=== PATIENT | male | born 1975 | race Caucasian/White ===

== ENCOUNTER 2022-04-23 01:02 | Emergency (ER) | payer MEDICAID ==
[~2022-04-23] VITALS: Ht 167.6 cm; Wt 110.5 kg
[2022-04-23] MEDS ORDERED: VISCOUS LIDOCAINE 2% 15 ML UDC PO STA (03:33)
[2022-04-23] MEDS ORDERED: MAGNESIUM/ALUMINUM HYDROXIDE/SIMETHICONE 30ML UDC PO STA (03:33)
[2022-04-23] MEDS ORDERED: MORPHINE SULFATE 4 MG/ML CPJ (NOT FOR IM USE) IV STA (04:18)
[2022-04-23] MEDS ORDERED: ONDANSETRON HCL 4MG/2ML INJ IV STA (04:18)
[2022-04-23 04:24] LABS: HEMATOCRIT. 47.5 % (42.0-52.0); HEMOGLOBIN. 16.1 g/dL (14.0-18.0); MEAN CORPUSCULAR VOLUME 85.5 fL (80.0-94.0); PLATELET 310 x1000/uL (130-400); RED BLOOD CELL COUNT 5.56 mill/uL (4.7-6.1); RED CELL DISTRIBUTION WIDTH 13.3 % (11.6-14.6)
[2022-04-23 04:25] LABS: CLARITY URINE CLOUDY (CLEAR); COLOR URINE DARK YELLOW (YELLOW); KETONES URINE TRACE (NEGATIVE); LEUKOCYTE ESTERASE URINE TRACE (NEGATIVE); NITRITE URINE NEGATIVE (NEGATIVE); OCCULT BLOOD URINE 3+ (NEGATIVE); PROTEIN URINE 1+ (NEGATIVE); SPECIFIC GRAVITY URINE 1.031 (1.005-1.030)
[2022-04-23 04:30] LABS: CHLORIDE 103 mEq/L (98-107)
[2022-04-23 04:43] LABS: ETHANOL BLOOD < 10 mg/dL
[2022-04-23 04:44] LABS: *AMPHETAMINES SCREEN URINE NEGATIVE (NEGATIVE); *BARBITURATES SCREEN URINE NEGATIVE (NEGATIVE); *BENZODIAZEPINES SCREEN URINE NEGATIVE (NEGATIVE); *COCAINE SCREEN URINE NEGATIVE (NEGATIVE); CANNABINOID URINE SCREEN NEGATIVE (NEGATIVE); METHADONE URINE SCREEN NEGATIVE (NEGATIVE); OPIATES URINE SCREEN NEGATIVE (NEGATIVE); PHENCYCLIDINE URINE SCREEN NEGATIVE (NEGATIVE)
[2022-04-23] MEDS ORDERED: KETOROLAC 30MG/ML VIAL IV STA (05:33)
[2022-04-23] MEDS ORDERED: TAMS-11 MT (05:36)
[2022-04-23] MEDS ORDERED: ONDA4TAB50 MT (05:36)
[2022-04-23] MEDS ORDERED: TAMSULOSIN HCL 0.4MG SR CAPSULE PO ONE (05:45)
[2022-04-23 06:28] VITALS: BP 154/84
[2022-04-23] MEDS ORDERED: HYDR-4001 PO (06:29)
[2022-04-23 07:17] LABS: PLATELET ESTIMATE NORMAL
== END 2022-04-23 06:42 | disposition home or self-care (01) ==
LOC: ER 02:14
DX: N13.2 Hydronephrosis with renal and ureteral calculous obstruction (principal); R03.0 Elevated blood-pressure reading, without diagnosis of hypertension
CPT/HCPCS: 36415; 74176; 80053; 80305; 80320; 81003; 83690; 85025; 96374; 96375; 99284; J1885; J2270; J2405; G0480